=== PATIENT | male | born 1985 | race African-American/Black ===

== ENCOUNTER 2016-07-06 16:18 | Emergency (ER) | payer OTHER ==
[~2016-07-06] VITALS: Ht 180.3 cm; Wt 72.6 kg
[~2016-07-06 16:18] MED LIST: BACTRIM DS TAB1 EAC1 ORAL; DOXYCYCLINE MO100 MG ORAL; KEFLEX500 MG ORAL; NKM; NORCO 5-325 TA1 EACH PO
[2016-07-06 16:58] VITALS: BP 114/62
[2016-07-06] MEDS ORDERED: Azithromycin 250mg tab ORAL ONE (17:00)
[2016-07-06] MEDS ORDERED: DOXYCYCLINE MO100 MG ORAL (17:02)
[2016-07-06] MEDS ORDERED: Lidocaine 1% MPF 10mg/ml 5ml ONE (17:04)
[2016-07-06 17:12] VITALS: BP 114/62
--- NOTE | 2016-07-06 18:41 | Emergency Room Report ---
History of Present Illness General Chief Complaint: Pain Source: Patient Present Illness HPI 31-year-old male presents ED for evaluation. Patient thinks he has a hernia. Notes pain and swelling to left inguinal area times one week. Pain is sharp, 7/ 10, nonradiating. No aggravating or relieving factors. Denies fevers or chills. Denies nausea or vomiting. Patient states he is concerned because he does have a history of hernia with mesh repair on the right side. Allergies: Coded Allergies: No Known Allergies (Verified Allergy, Unknown, 12/31/06) Patient History Past Medical History: asthma Past Surgical History: other - hernia Pertinent Family History: none Social History: Denies: alcohol use, drug use, smoking Immunizations: UTD Reviewed Nursing Documentation: PMH: Agreed, PSxH: Agreed Nursing Documentation-PMH Hx Cardiac Problems: No - leaky valve Hx Asthma: Yes Review of Systems All Other Systems: negative except mentioned in HPI Physical Exam Vital Signs Date Time Temp Pulse Resp B/P Pulse Ox O2 Delivery O2 Flow Rate FiO2 07/06/16 16:25 97.9 94 16 114/62 94 Room Air Sp02 EP Interpretation: reviewed, normal General Appearance: no apparent distress, alert, GCS 15, non-toxic Head: normocephalic Eyes: bilateral eye PERRL, bilateral eye normal inspection ENT: normal ENT inspection Neck: normal inspection Respiratory: normal inspection Cardiovascular #1: normal inspection Gastrointestinal: normal bowel sounds, non tender, soft, non-distended, no guarding, no rebound Rectal: deferred Genitourinary: no CVA tenderness, scrotum normal Musculoskeletal: normal inspection Neurologic: alert, oriented x3, responsive, motor strength/tone normal, sensory intact, speech normal Psychiatric: normal inspection Skin: normal inspection Lymphatic: inguinal node tender (L) Medical Decision Making Diagnostic Impression: Primary Impression: Lymphadenopathy ER Course 31-year-old male presents to ED complaining of left inguinal pain and swelling. History of hernia repair in the right side Differential-inguinal hernia, incarcerated hernia, lymphadenopathy Patient placed on stretcher. After initial history physical exam reveals a young male in no acute distress. There is evidence of a small tender nodule in the left inguinal region. Consistent with lymphadenopathy, not consistent with a inguinal hernia. Reassurance given. I reviewed EMR patient was seen here previously for similar presentation-was given antibiotics and states symptoms did resolve. Patient admits to recent unprotected sexual history. However denies any discharge or testicular pain or swelling. Given Rocephin and azithromycin in ED. Will discharge on doxycycline Diagnoses-lymphadenopathy Stable and discharged to home prescription for doxycycline. Followup with PMD. Return to ED symptoms recur or worsen Last Vital Signs Date Time Temp Pulse Resp B/P Pulse Ox O2 Delivery O2 Flow Rate FiO2 07/06/16 17:12 97.9 16 114/62 94 Room Air 07/06/16 16:25 94 Status: improved Disposition: HOME, SELF-CARE Condition: Stable Scripts Doxycycline Monohydrate* (DOXYCYCLINE MONOHYDRATE*) 100 Mg Capsule 100 MG ORAL Q12H, #14 CAP 0 Refills Prov: HE BREEN M.D. 07/06/16 Referrals: [facility],REFERRING (PCP) Patient Instructions: Lymphadenopathy HE BREEN M.D. Jul 06, 2016 18:41
== END 2016-07-06 17:14 | disposition home or self-care (01) ==
LOC: EMR 16:54
DX: R59.0 Localized enlarged lymph nodes (principal); J45.909 Unspecified asthma, uncomplicated
CPT/HCPCS: 96372; 99283; J0696; Q0144